=== PATIENT | male | born 1940 | race Caucasian/White ===

== ENCOUNTER 2017-12-08 10:17 | Day surgery (SDC) | payer MEDICARE ==
[~2017-12-08 10:17] MED LIST: CHONDR SU A NA/HYALUR INTRAOC KIT (SURGICARE) ONE; EPINEPHRINE INJ/PF 1 MG/1 ML AMPULE ONE; KETOROLAC TROMETHAMINE 0.45% 4 DROP/0.4 ML DROPERETTE OS PRN; LIDOCAINE 1% INJ-PF (10 MG/ML) 30 ML SDV ONE; LIDOCAINE 1%/PHENYLEPHRINE 1.5% 1 ML VIAL ONE
[2017-12-08] MEDS: TROPICAMIDE 1% OPH SOLN 3 ML OS PRN ×3 (10:29→11:04)
[2017-12-08] MEDS: CYCLOPENTOLATE 0.2%/PHENYLEPHRINE 1% OPH SOLN 2 ML OS PRN ×3 (10:29→11:04)
[2017-12-08] MEDS: BESIFLOXACIN HCL 0.6% OPH SUSP 5 ML BOTTLE OS PRN ×3 (10:30→12:01)
[2017-12-08] MEDS: TETRACAINE HCL 0.5% OPH SOLN 2 ML OS PRN ×3 (10:31→11:12)
[2017-12-08] MEDS ORDERED: MIDAZOLAM 2 MG/2 ML INJ ONE ×2 (10:36)
[2017-12-08] MEDS ORDERED: CHONDR SU A NA/HYALUR INTRAOC KIT (SURGICARE) ONE (11:32)
[2017-12-08] MEDS ORDERED: LIDOCAINE 1%/PHENYLEPHRINE 1.5% 1 ML VIAL ONE (11:45)
[2017-12-08] MEDS ORDERED: ACETAZOLAMIDE SODIUM INJ 500 MG VIAL ONE (12:22)
[2017-12-08] MEDS ORDERED: WATER FOR INJECTION,STERILE 10 ML SDV ONE (12:26)
[2017-12-08] MEDS ORDERED: BRIMONIDINE TARTRATE 0.2% OPH SOLN 5 ML ONE (13:01)
[2017-12-08] MEDS ORDERED: TIMOLOL MALEATE 0.5% OPH SOLN 5 ML ONE (13:01)
--- NOTE | 2017-12-09 13:26 | [facility] OPERATIVE REPORT E ---
[facility] Operative Report NAME: PEE ANTHONY AGE: 77Y DATE OF SURGERY: 12/08/2017 ROOM: PREOPERATIVE DIAGNOSIS: CATARACT, LEFT EYE. POSTOPERATIVE DIAGNOSIS: CATARACT, LEFT EYE. OPERATION: Cataract extraction with toric intraocular lens implant of the left eye. SURGEON: ISIDRO HANKS M.D. ANESTHESIA: MAC with retrobulbar. COMPLICATIONS: Aqueous misdirection. ESTIMATED BLOOD LOSS: None. PROCEDURE: After appropriate consent was obtained and calculations made, the patient was brought back to the operating room where the patient was prepped and draped in sterile fashion. A lid speculum was placed and attention was directed to a paracentesis where a paracentesis blade made a small incision. Viscoelastic was then used to inflate the anterior chamber. Next a 2.4 mm incision was made with the paracentesis blade. A continuous capsulorhexis forceps of approximately 5 mm was done using a cystitome and capsulorhexis forceps. Hydrodissection was carried out to make the lens freely mobile and then a divide and conquer technique was used to remove the lens with a CDE of approximately 4.58. Following this, the remaining cortical material was removed with irrigation/aspiration. After this the patient was then again marked. The marking procedure started in the preoperative holding area where 180 and 0 was marked with a marker. Now that the patient was in the operating room a 360-degree marker was used to rosa elena the axis at approximately 110 degrees and a 20.0 diopters, [id number] toric lens rotated to 3 degrees was injected into the bag after filling with viscoelastic and rotating into proper position. The I/A was used to remove the viscoelastic material and the toric lens appeared to be appropriately aligned. After insertion of the lens it was felt that there was significant posterior pressure. I suspected aqueous misdirection. I put a 10-0 nylon simple interrupted suture through the clear corneal incision. All wounds were found to be Lata negative, and the lens was in excellent position. At this point the patient was given 500 mg of Diamox IV, and Timolol and Alphagan were inserted into the eye along with Besivance, and then a rigid shield was placed on the eye. The patient woke up in postop recovery in stable condition. DICTATING PHYSICIAN: ISIDRO HANKS M.D. [id number] PHY#: [id number] ID: [id number] JOB#: [id number] ACCT: [id number] cc:ISIDRO HANKS M.D. >
--- NOTE | 2017-12-09 13:26 | [facility] DISCHARGE SUMMARY E ---
[facility] Discharge Summary NAME: PEE ANTHONY AGE: 77Y ADMITTED: 12/08/2017 DISCHARGED: 12/08/2017 DIAGNOSIS: Cataract, left eye, with insertion of a toric IOL. SUMMARY: This is a 77-year-old male who underwent cataract extraction of the left eye. The patient underwent surgery because he was having trouble reading road signs and words on the television. DISCHARGE INSTRUCTIONS: Patient should be on a regular diet, no bending at the waist, and no heavy lifting. I prescribed the patient Timolol and Alphagan to be placed in the eye b.i.d. I also prescribed Diamox 250 mg tablets; he is to take that b.i.d. as well. Take his Besivance, Durezol, and Ilevro at 3 p.m. and 8 p.m. and sleep with a rigid shield. I will see him the next day for assessment of his eye pressure. DICTATING PHYSICIAN: ISIDRO HANKS M.D. [id number] PHY#: [id number] ID: [id number] JOB#: [id number] ACCT: [id number] cc:ISIDRO HANKS M.D. >
== END 2017-12-08 13:42 | disposition home or self-care (01) ==
LOC: SC 10:17
PROVIDERS: ATTEND Internal Medicine
DX: H25.813 Combined forms of age-related cataract, bilateral (principal); H57.03 Miosis; H35.373 Puckering of macula, bilateral; I10 Essential (primary) hypertension; G40.909 Epilepsy, unspecified, not intractable, without status epilepticus; F03.90 Unspecified dementia, unspecified severity, without behavioral disturbance, psychotic disturbance, mood disturbance, and anxiety; Z79.899 Other long term (current) drug therapy; Z86.73 Personal history of transient ischemic attack (TIA), and cerebral infarction without residual deficits; Z79.82 Long term (current) use of aspirin
CPT/HCPCS: 66984; V2787; J1120; J2250; J3490 ×4; A9270; J0171; J2370; 142

== ENCOUNTER 2018-03-23 08:20 | Day surgery (SDC) | payer MEDICARE ==
[~2018-03-23 08:20] MED LIST changes: -CHONDR SU A NA/HYALUR INTRAOC KIT (SURGICARE) ONE; -EPINEPHRINE INJ/PF 1 MG/1 ML AMPULE ONE; +KETOROLAC TROMETHAMINE 0.45% 4 DROP/0.4 ML DROPERETTE OD PRN; -KETOROLAC TROMETHAMINE 0.45% 4 DROP/0.4 ML DROPERETTE OS PRN; -LIDOCAINE 1% INJ-PF (10 MG/ML) 30 ML SDV ONE; -LIDOCAINE 1%/PHENYLEPHRINE 1.5% 1 ML VIAL ONE
[2018-03-23] MEDS: TETRACAINE HCL 0.5% OPH SOLN 4 ML OD PRN ×4 (08:50→09:29)
[2018-03-23] MEDS: TROPICAMIDE 1% OPH SOLN 3 ML OD PRN ×3 (08:51→09:12)
[2018-03-23] MEDS: CYCLOPENTOLATE 0.2%/PHENYLEPHRINE 1% OPH SOLN 2 ML OD PRN ×3 (08:51→09:12)
[2018-03-23] MEDS: BESIFLOXACIN HCL 0.6% OPH SUSP 5 ML BOTTLE OD PRN ×4 (08:52→09:52)
[2018-03-23] MEDS ORDERED: MIDAZOLAM 2 MG/2 ML INJ ONE (09:14)
[2018-03-23] MEDS: EPINEPHRINE INJ/PF 1 MG/1 ML AMPULE ONE ×2 (09:38)
[2018-03-23] MEDS: LIDOCAINE 1%/PHENYLEPHRINE 1.5% 1 ML VIAL ONE ×2 (09:38)
[2018-03-23] MEDS: CHONDR SU A NA/HYALUR INTRAOC KIT (SURGICARE) ONE ×2 (09:38)
--- NOTE | 2018-03-23 21:31 | [facility] DISCHARGE SUMMARY E ---
[facility] Discharge Summary NAME: PEE ANTHONY AGE: 77Y ADMITTED: 03/23/2018 DISCHARGED: 03/23/2018 HOSPITAL COURSE: This is a 77-year-old male who underwent cataract extraction of the right eye. DIAGNOSIS: CATARACT, RIGHT EYE. He underwent surgery because he was having trouble seeing small print and words on the television. DISCHARGE INSTRUCTIONS: He should be on a regular diet. No bending at his waist, no heavy lifting. He should use his Besivance, Ilevro, and Durezol at 3 p.m. and 8 p.m. and sleep with a rigid shield. I will see him for his 1 day postoperative tomorrow. DICTATING PHYSICIAN: ISIDRO HANKS M.D. [id number] PHY#: [id number] ID: [id number] JOB#: [id number] ACCT: [id number] cc:ISIDRO HANKS M.D. >
--- NOTE | 2018-03-23 21:31 | [facility] OPERATIVE REPORT E ---
[facility] Operative Report NAME: PEE ANTHONY AGE: 77Y DATE OF SURGERY: 03/23/2018 ROOM: PREOPERATIVE DIAGNOSIS: CATARACT, RIGHT EYE. POSTOPERATIVE DIAGNOSIS: CATARACT, RIGHT EYE. OPERATION: Cataract extraction with insertion of an IOL of the right eye. SURGEON: ISIDRO HANKS M.D. ANESTHESIA: Topical. PROCEDURE: After obtaining appropriate consent, the patient's right eye was prepped and draped in sterile fashion as well as the surgeon in a sterile manner and cataract surgery was started. First a paracentesis blade was used to make a side-port incision. Viscoelastic was used to inflate the anterior chamber. Next a 2.4 mm incision was made with a 2.4 mm blade, clear corneal temporally. A continuous capsulorrhexis was made using a cystotome and Utrata forceps. Following this hydrodissection was carried out to make the lens fully loose and mobile and it was rotated 90 degrees. Following this, a rhvhdp-rvx-cnpwzwh technique was used to phacoemulsify the lens with a CDE of 7.71. The remaining cortex was removed with irrigation/aspiration. Provisc was instilled into the capsular bag to inflate the bag. A SN60WF, 19.5 diopter lens was placed. The remaining viscoelastic material was removed with irrigation/aspiration. Following this, the incision was found to be watertight. Besivance was instilled into the eye and a protective shield was placed over the eye. The patient returned to the postoperative recovery in stable condition. DICTATING PHYSICIAN: ISIDRO HANKS M.D. [id number] PHY#: [id number] ID: [id number] JOB#: [id number] ACCT: [id number] cc:ISIDRO HANKS M.D. >
== END 2018-03-23 10:50 | disposition home or self-care (01) ==
LOC: SC 08:20
PROVIDERS: ATTEND Internal Medicine
DX: H25.811 Combined forms of age-related cataract, right eye (principal); Z96.1 Presence of intraocular lens; I10 Essential (primary) hypertension; M19.90 Unspecified osteoarthritis, unspecified site; H40.89 Other specified glaucoma; G40.909 Epilepsy, unspecified, not intractable, without status epilepticus; Z86.73 Personal history of transient ischemic attack (TIA), and cerebral infarction without residual deficits; Z88.0 Allergy status to penicillin; Z79.899 Other long term (current) drug therapy; Z79.82 Long term (current) use of aspirin; Z88.8 Allergy status to other drugs, medicaments and biological substances
CPT/HCPCS: 66984; V2632; J2250; J3490 ×2; A9270; J0171; J2370; 142